=== PATIENT | female | born 1960 | race Caucasian/White ===

== ENCOUNTER 2016-11-28 04:41 | Emergency (ER) | payer OTHER ==
[~2016-11-28] VITALS: Ht 167.6 cm; Wt 95.5 kg
[~2016-11-28 04:41] MED LIST: ADIPEX-P37.5 MG PO; ADVIL200 MG PO; ALLEGRA ALLERGY60 MG PO; AMBIEN CR6.25 MG PO; BEN TP; CALCIUM CARBONATE; CALCIUM600 M1 PO; CHERATUSSIN AC120 ML PO; CLINDAMYCIN TP; CYMBALTA 30MG30 MG PO; DARVOCET N 101 UDTAB PO; ESCITALOPRAM PO; FISH OIL 1000MG1 CAP PO; FLEXERIL PO; GAVISCON 95 MG360 ML PO; LEVAQUIN 5500 MG/TA1 PO; MULTIPLE VITAMI1 CAP PO; MURO N OP; NATURE'S BLEND400 IU PO; NEURONTIN100 MG PO; NEXIUM 40MG40 MG PO; NEXIUM PO; NORCO 325 MG-51 TAB PO; PHENTERMINE HCL15 MG PO; PREDNISONE20 MG PO; REFRESH 1 ML1 ML OP; REQUIP XL2 MG PO; REQUIP XL4 MG PO; ROPINAROLE PO; SYNTHROID0.025 MG PO; TUMS500 MG PO; ULTRAM 50MG TAB50 MG PO; VITAMIN; VITAMIN D 1001000 IU PO; VITAMIN D PO; VITAMIN E PO
[2016-11-28 04:44] VITALS: TEMP 98.1
[2016-11-28] MEDS ORDERED: TESSALON PERLE200 MG PO (04:49)
[2016-11-28] MEDS ORDERED: PROAIR HFA0.09 MG/AC IH (04:49)
[2016-11-28] MEDS ORDERED: CARAFATE 1GM1 G PO (04:50)
[2016-11-28] MEDS ORDERED: PHENERGAN W/CO120 M1 PO (04:50)
[2016-11-28 05:23] LABS: BASO # 0.1 (0.0-0.2); BASO % 0.6 % (0.0-2.0); EOS # 0.3 (0.0-0.7); EOS % 3.5 % (0-4.0); GRAN # 5.4 (1.4-6.5); GRAN % 60.3 % (42.2-75.2); HEMATOCRIT 39.2 % (37.0-47.0); HEMOGLOBIN 13.4 g/dl (12.5-16.0); LYMPH # 2.4 (1.2-3.4); LYMPH % 27.4 % (20.0-51.0); MEAN CELL VOLUME 89 fl (80.0-100.0); MEAN CORPUSCULAR HEMOGLOBIN 31 pg (27.0-31.0); MEAN CORPUSCULAR HGB CONC 34 g/dl (33.0-37.0); MEAN PLATELET VOLUME 9.7 fl (7.4-10.4); MONO # 0.7 (0.1-0.6); MONO % 7.9 % (1.7-9.3); PLATELET COUNT 236 K/mm3 (130-400); REDCELL DISTRIBUTION WIDTH-CV 12.5 % (11.5-14.5); WHITE BLOOD COUNT 8.9 K/mm3 (4.8-10.8)
[2016-11-28 05:43] LABS: ANION GAP 10 mmol/L (7-16); BLOOD UREA NITROGEN 23 mg/dL (7-17); CALCIUM 9.4 mg/dL (8.4-10.2); CARBON DIOXIDE 24 mmol/L (22-30); CHLORIDE 106 mmol/L (98-107); GLUCOSE 109 mg/dL (74-106); POTASSIUM 3.8 mmol/L (3.4-5.0); SODIUM 141 mmol/L (137-145)
[2016-11-28 05:44] LABS: C-REACTIVE PROTEIN < 0.5 mg/dL (0.0-0.9)
[2016-11-28 05:49] LABS: B-TYPE NATRIURETIC PEPTIDE 112 pg/mL (0-125)
[2016-11-28] MEDS ORDERED: TUSS PO (06:51)
[2016-11-28 07:22] VITALS: BP 141/91; PULSE 95
== END 2016-11-28 07:23 | disposition home or self-care (01) ==
LOC: COL.ER 04:41
PROVIDERS: Emergency Medicine
DX: J40 Bronchitis, not specified as acute or chronic (principal)
CPT/HCPCS: Q9967

== ENCOUNTER → 2016-12-13 | Outpatient (CLI) | payer OTHER ==
[~2016-12-13] MED LIST changes: +ATIVAN 0.50.5 MG/TAB PO; +CARAFATE 1GM1 G PO; +CEPACOL SORE TH1 LO8 MM; +NEXIUM 20MG20 MG PO; +PHENERGAN W/CO120 M1 PO; +PROAIR HFA0.09 MG/AC IH; +TESSALON PERLE200 MG PO; +TUSS PO
== END ==
LOC: MC.RAD 12:40
DX: N63 Unspecified lump in breast (principal)

== ENCOUNTER 2016-12-27 11:34 | Day surgery (SDC) | payer OTHER ==
[~2016-12-27] VITALS: Ht 165.1 cm; Wt 93.7 kg
[~2016-12-27 11:34] MED LIST changes: -ATIVAN 0.50.5 MG/TAB PO; -CEPACOL SORE TH1 LO8 MM; -NEXIUM 20MG20 MG PO
[2016-12-27] MEDS ORDERED: NEXIUM 20MG20 MG PO (12:08)
[2016-12-27 12:26] VITALS: BP 125/83; PULSE 93; TEMP 97.9
[2016-12-27 13:34] VITALS: BP 108/86; PULSE 97; TEMP 97.2
[2016-12-27 13:50] VITALS: BP 107/73; PULSE 95
[2016-12-27 14:05] VITALS: BP 105/67; PULSE 94
[2016-12-27 14:20] VITALS: BP 105/68; PULSE 98
== END 2016-12-27 15:10 | disposition home or self-care (01) ==
LOC: SDCO 11:34
DX: R05 Cough (principal); K21.9 Gastro-esophageal reflux disease without esophagitis; Z80.9 Family history of malignant neoplasm, unspecified
CPT/HCPCS: J0456; J2704; J2920; J7050; J7120

== ENCOUNTER → 2017-02-11 | Outpatient (CLI) | payer OTHER ==
[~2017-02-11] MED LIST changes: +ATIVAN 0.50.5 MG/TAB PO; +CEPACOL SORE TH1 LO8 MM; +NEXIUM 20MG20 MG PO
== END ==
LOC: COL.RAD 10:14
DX: K21.9 Gastro-esophageal reflux disease without esophagitis (principal); K44.9 Diaphragmatic hernia without obstruction or gangrene

== ENCOUNTER 2017-03-30 09:11 | Day surgery (SDC) | payer OTHER ==
[2017-03-30] VITALS (8 sets, daily range): BP systolic 109–132; BP diastolic 68–82; PULSE 86–99; TEMP 98
[~2017-03-30] VITALS: Ht 165.1 cm; Wt 95.3 kg
[~2017-03-30 09:11] MED LIST changes: -ATIVAN 0.50.5 MG/TAB PO; -CEPACOL SORE TH1 LO8 MM
[2017-03-30] MEDS ORDERED: ATIVAN 0.50.5 MG/TAB PO (10:45)
[2017-03-30] MEDS ORDERED: CEPACOL SORE TH1 LO8 MM (10:45)
[2017-03-30 15:03] LABS: BASO # 0.1 (0.0-0.2); BASO % 0.6 % (0.0-2.0); EOS # 0.2 (0.0-0.7); EOS % 1.7 % (0-4.0); GRAN % 84.5 % (42.2-75.2); HEMATOCRIT 42.4 % (37.0-47.0); HEMOGLOBIN 14.5 g/dl (12.5-16.0); LYMPH # 1.1 (1.2-3.4); LYMPH % 10.2 % (20.0-51.0); MEAN CELL VOLUME 90 fl (80.0-100.0); MEAN CORPUSCULAR HEMOGLOBIN 31 pg (27.0-31.0); MEAN CORPUSCULAR HGB CONC 34 g/dl (33.0-37.0); MEAN PLATELET VOLUME 9.5 fl (7.4-10.4); MONO # 0.3 (0.1-0.6); MONO % 2.4 % (1.7-9.3); PLATELET COUNT 265 K/mm3 (130-400); RED BLOOD COUNT 4.71 M/mm3 (4.10-5.30); WHITE BLOOD COUNT 10.6 K/mm3 (4.8-10.8)
[2017-03-30 15:12] LABS: ADJUSTED CALCIUM 9.3 mg/dL (8.4-10.2); ALBUMIN 4.3 gm/dL (3.5-5.0); BILIRUBIN,TOTAL 0.7 mg/dL (0.0-1.0); CALCIUM 9.5 mg/dL (8.4-10.2); CREATININE, serum 0.79 mg/dL (0.52-1.25); POTASSIUM 4.4 mmol/L (3.4-5.0); TOTAL PROTEIN 7.4 gm/dL (6.4-8.2)
[2017-03-31 02:30] VITALS: BP 116/57; PULSE 87; TEMP 97.6
[2017-03-31 06:09] VITALS: BP 112/64; PULSE 78; TEMP 98.8
[2017-03-31 08:06] VITALS: BP 97/52; PULSE 84; TEMP 97.4
[2017-03-31 12:17] VITALS: BP 113/56; PULSE 79; TEMP 97.5
== END 2017-03-31 12:49 | disposition home or self-care (01) ==
LOC: SDCO 09:11 → JCC 15:34 → SDCO 03-31 12:49
PROVIDERS: Surgery
PROC: 0DV44ZZ Restriction of Esophagogastric Junction, Percutaneous Endoscopic Approach (ICD-10-PCS; principal; 2017-03-30 11:00)
DX: K21.9 Gastro-esophageal reflux disease without esophagitis (principal); R05 Cough; K22.4 Dyskinesia of esophagus; K44.9 Diaphragmatic hernia without obstruction or gangrene; Z98.84 Bariatric surgery status; I10 Essential (primary) hypertension; E03.9 Hypothyroidism, unspecified; F32.9 Major depressive disorder, single episode, unspecified; Z79.899 Other long term (current) drug therapy
CPT/HCPCS: OP; A9284; C1713; C1781; J0330; J1100; J1170; J1885; J2405; J2704; J2710; J3010; J7042; J7120

== ENCOUNTER → 2017-04-22 | Outpatient (REF) ==
[~2017-04-22] MED LIST changes: +ATIVAN 0.50.5 MG/TAB PO; +CEPACOL SORE TH1 LO8 MM
== END ==
LOC: WSOH 15:22
DX: Z02.89 Encounter for other administrative examinations (principal)
CPT/HCPCS: G0463

== ENCOUNTER 2017-04-29 11:37 | Emergency (ER) | payer OTHER ==
[~2017-04-29] VITALS: Ht 165.1 cm; Wt 95.5 kg
[2017-04-29 11:39] VITALS: TEMP 99.3
[2017-04-29 13:19] VITALS: BP 112/73; PULSE 88
== END 2017-04-29 13:20 | disposition home or self-care (01) ==
LOC: COL.ER 11:37
DX: R51 Headache (principal); I67.1 Cerebral aneurysm, nonruptured; F41.9 Anxiety disorder, unspecified

== ENCOUNTER → 2017-05-17 | Outpatient (CLI) | payer OTHER | LOC: COL.RAD 05-12 14:00 | DX: I67.1 Cerebral aneurysm, nonruptured (principal) ==

== ENCOUNTER → 2017-07-21 | Outpatient (REF) | LOC: WSOH 19:00 | DX: Z02.89 Encounter for other administrative examinations (principal) ==

== ENCOUNTER → 2018-01-11 | Outpatient (CLI) | payer OTHER | LOC: MC.RAD 09:32 | DX: Z12.31 Encounter for screening mammogram for malignant neoplasm of breast (principal); Z98.890 Other specified postprocedural states ==

== ENCOUNTER 2018-12-29 11:19 | Emergency (ER) | payer OTHER ==
[~2018-12-29] VITALS: Ht 165.1 cm; Wt 99.1 kg
[2018-12-29 11:21] VITALS: TEMP 99.9
[2018-12-29] MEDS ORDERED: LEXAPRO20 MG PO (11:33)
[2018-12-29] MEDS ORDERED: NEXIUM 40MG40 MG PO (11:33)
[2018-12-29] MEDS ORDERED: SYNTHROID0.05 MG/TA PO (11:33)
[2018-12-29] MEDS ORDERED: EPA FISH OIL1 SGL PO (11:34)
[2018-12-29] MEDS ORDERED: NORCO 325 MG-7.1 TAB PO (13:08)
[2018-12-29 13:14] VITALS: BP 144/88; PULSE 84
== END 2018-12-29 13:20 | disposition home or self-care (01) ==
LOC: COL.ER 11:19
DX: L02.01 Cutaneous abscess of face (principal); E03.9 Hypothyroidism, unspecified; Z98.890 Other specified postprocedural states; Z90.89 Acquired absence of other organs; Z88.5 Allergy status to narcotic agent; Z87.891 Personal history of nicotine dependence
CPT/HCPCS: J1170

== ENCOUNTER 2018-12-31 02:56 | Emergency (ER) | payer OTHER ==
[~2018-12-31] VITALS: Ht 165.1 cm; Wt 99.1 kg
[~2018-12-31 02:56] MED LIST changes: +EPA FISH OIL1 SGL PO; +LEXAPRO20 MG PO; +NORCO 325 MG-7.1 TAB PO; +SYNTHROID0.05 MG/TA PO
[2018-12-31 02:57] VITALS: TEMP 98.7
[2018-12-31 03:53] LABS: BASO # 0.1 (0.0-0.2); BASO % 0.9 % (0.0-2.0); EOS # 0.2 (0.0-0.7); EOS % 3.4 % (0-4.0); GRAN # 3.1 (1.4-6.5); GRAN % 53.3 % (42.2-75.2); HEMATOCRIT 41.6 % (37.0-47.0); HEMOGLOBIN 14.3 g/dl (12.5-16.0); LYMPH # 1.6 (1.2-3.4); LYMPH % 27.5 % (20.0-51.0); MEAN CELL VOLUME 90 fl (80.0-100.0); MEAN CORPUSCULAR HEMOGLOBIN 31 pg (27.0-31.0); MEAN CORPUSCULAR HGB CONC 34 g/dl (33.0-37.0); MEAN PLATELET VOLUME 9.3 fl (7.4-10.4); MONO # 0.8 (0.1-0.6); MONO % 14.4 % (1.7-9.3); PLATELET COUNT 236 K/mm3 (130-400); RED BLOOD COUNT 4.61 M/mm3 (4.10-5.30); REDCELL DISTRIBUTION WIDTH-CV 11.9 % (11.5-14.5)
[2018-12-31 04:07] LABS: ALBUMIN 4.1 gm/dL (3.5-5.0); BILIRUBIN,TOTAL 0.4 mg/dL (0.0-1.0); C-REACTIVE PROTEIN 1.4 mg/dL (0.0-0.9); CALCIUM 9.3 mg/dL (8.4-10.2); CREATININE, serum 0.78 mg/dL (0.52-1.25); POTASSIUM 4.4 mmol/L (3.4-5.0); TOTAL PROTEIN 7.1 gm/dL (6.4-8.2)
[2018-12-31] MEDS ORDERED: DOXYCYCLINE 10100 MG PO (06:19)
[2018-12-31] MEDS ORDERED: NORCO 325 MG-51 TAB PO (06:20)
[2018-12-31 06:43] VITALS: BP 119/78; PULSE 85
== END 2018-12-31 06:45 | disposition home or self-care (01) ==
LOC: COL.ER 02:56
PROVIDERS: Emergency Medicine
DX: L03.211 Cellulitis of face (principal); L02.01 Cutaneous abscess of face
CPT/HCPCS: J1170; J3010; J7030; J7050; Q9967

== ENCOUNTER → 2019-01-16 | Outpatient (CLI) | payer OTHER ==
[~2019-01-16] MED LIST changes: +DOXYCYCLINE 10100 MG PO
== END ==
LOC: MC.RAD 14:18
DX: Z12.31 Encounter for screening mammogram for malignant neoplasm of breast (principal); N63.11 Unspecified lump in the right breast, upper outer quadrant; Z98.890 Other specified postprocedural states; Z98.82 Breast implant status; Z92.3 Personal history of irradiation

== ENCOUNTER → 2019-01-30 | Outpatient (CLI) | payer OTHER ==
[~2019-01-30] VITALS: Ht 165.1 cm; Wt 99.1 kg
[2019-01-30 14:56] VITALS: BP 130/80; PULSE 72
== END ==
LOC: LIGHT 01-02 14:29
DX: Z98.84 Bariatric surgery status (principal); E66.9 Obesity, unspecified; Z68.36 Body mass index [BMI] 36.0-36.9, adult; Z71.3 Dietary counseling and surveillance
CPT/HCPCS: G0463

== ENCOUNTER 2020-03-29 08:14 | Emergency (ER) | payer OTHER ==
[~2020-03-29] VITALS: Ht 165.1 cm; Wt 104.5 kg
[2020-03-29 08:20] VITALS: BP 126/68; TEMP 97.6
[2020-03-29 09:39] LABS: BASO % 0.5 % (0.0-2.0); EOS # 0.3 (0.0-0.7); EOS % 4.1 % (0-4.0); GRAN # 3.4 (1.4-6.5); GRAN % 54.4 % (42.2-75.2); HEMATOCRIT 40.3 % (37.0-47.0); LYMPH # 1.9 (1.2-3.4); LYMPH % 29.6 % (20.0-51.0); MEAN CELL VOLUME 90 fl (80.0-100.0); MEAN CORPUSCULAR HEMOGLOBIN 31 pg (27.0-31.0); MEAN CORPUSCULAR HGB CONC 35 g/dl (33.0-37.0); MEAN PLATELET VOLUME 9.7 fl (7.4-10.4); MONO # 0.7 (0.1-0.6); MONO % 11.1 % (1.7-9.3); PLATELET COUNT 213 K/mm3 (130-400); RED BLOOD COUNT 4.46 M/mm3 (4.10-5.30)
[2020-03-29 09:55] LABS: ALANINE AMINOTRANSFERASE 41 U/L (4-34); ALBUMIN 4.4 gm/dL (3.5-5.0); ALKALINE PHOSPHATASE 67 U/L (50-136); ANION GAP 9 mmol/L (7-16); AST,SGOT 33 U/L (15-37); BILIRUBIN,TOTAL 0.6 mg/dL (0.0-1.0); BLOOD UREA NITROGEN 22 mg/dL (7-17); CALCIUM 9.4 mg/dL (8.4-10.2); CARBON DIOXIDE 25 mmol/L (22-30); CHLORIDE 104 mmol/L (98-107); GLUCOSE 106 mg/dL (74-106); LIPASE 139 U/L (23-300); POTASSIUM 4.1 mmol/L (3.4-5.0); SODIUM 137 mmol/L (137-145); TOTAL PROTEIN 7.4 gm/dL (6.4-8.2)
[2020-03-29 10:00] LABS: C-REACTIVE PROTEIN < 0.5 mg/dL (0.0-0.9)
[2020-03-29 10:31] LABS: COLLECTION METHOD CLEAN CATCH
[2020-03-29 10:45] LABS: MUCOUS Present /lpf; PH 5 (5-8); SQUAMOUS EPITHELIAL 0-2 /hpf; URINE APPEARANCE Clear; URINE BACTERIA None Seen /hpf; URINE BILIRUBIN Negative (NEGATIVE); URINE BLOOD Negative (NEGATIVE); URINE COLOR Yellow; URINE GLUCOSE Negative (NEGATIVE); URINE KETONE Negative (NEGATIVE); URINE LEUKOCYTE ESTERASE Negative (NEGATIVE); URINE NITRATE Negative (NEGATIVE); URINE PROTEIN(semi-quant) Negative (NEGATIVE); URINE RBC 0-2 /hpf; URINE UROBILINOGEN Negative (NEGATIVE)
[2020-03-29] MEDS ORDERED: ZOFRAN ODT4 MG PO (11:59)
[2020-03-29] MEDS ORDERED: NORCO 325 MG-51 TAB PO (11:59)
[2020-03-29 12:20] VITALS: PULSE 82
== END 2020-03-29 12:20 | disposition home or self-care (01) ==
LOC: COL.ER 08:14
PROVIDERS: Physician Assistant
DX: K43.9 Ventral hernia without obstruction or gangrene (principal); I10 Essential (primary) hypertension; K21.9 Gastro-esophageal reflux disease without esophagitis; E03.9 Hypothyroidism, unspecified; F32.9 Major depressive disorder, single episode, unspecified; Z90.89 Acquired absence of other organs; Z88.5 Allergy status to narcotic agent; Z90.710 Acquired absence of both cervix and uterus; Z85.3 Personal history of malignant neoplasm of breast
CPT/HCPCS: J1170; J1885; J2405; J7030; Q9967

== ENCOUNTER 2020-04-11 05:25 | Day surgery (SDC) | payer OTHER ==
[~2020-04-11] VITALS: Ht 166.4 cm; Wt 101.3 kg
[2020-04-11] VITALS (9 sets, daily range): BP systolic 116–131; BP diastolic 69–93; PULSE 81–100; TEMP 97.9–98.9
[~2020-04-11 05:25] MED LIST changes: +ZOFRAN ODT4 MG PO
[2020-04-11] MEDS ORDERED: MASON NATURAL1200 MG PO (06:27)
[2020-04-11] MEDS ORDERED: DEPAKOTE ER 50500 MG PO (06:30)
[2020-04-11] MEDS ORDERED: NORCO 325 MG-51 TAB PO ×2 (06:31→09:52)
[2020-04-11] MEDS ORDERED: ZOFRAN ODT4 MG PO (06:32)
[2020-04-11] MEDS ORDERED: ATIVAN 0.50.5 MG/TAB PO (06:32)
[2020-04-11] MEDS ORDERED: TUMS500 MG PO (06:33)
--- NOTE | 2020-04-11 06:33 | NUR ---
TO RM 8 AT 0546- CALL LIGHT IN REACH WILL CALL FOR RIDE HOME
--- NOTE | 2020-04-11 13:20 | NUR ---
Pt arrived to room 328 at this time. She is very drowsy but will arouse to name and answer questions appropriately, quickly falls back asleep. Pt currently requiring 3L O2 via NC. Occasional cough present, some tracheal wheeze present but lungs CTA. HR regular. No swelling present to extremities. Binder on to abdomen, small amount of blood present. OR nurse reports area has not grown. Pt reporting pain 8/10, PRN norco administered. Pt requesting Zofran for nausea that is typically associated with [place]. Pt resting comfortably at this time. Call light within reach. WIll continue to monitor.
--- NOTE | 2020-04-11 17:00 | NUR ---
Pt awake and alert, ambulating in the room. No longer requiring O2. WIll proceed with discharge.
--- NOTE | 2020-04-11 17:19 | NUR ---
Discharge instructions and paperwork reviewed with patient. All questions answered at this time. IV to LAC dc'd cathteter tip intact. Pt wheeled out at this time.
== END 2020-04-11 17:20 | disposition home or self-care (01) ==
LOC: SDCO 05:25 → JCC 14:05 → SDCO 17:20
DX: K43.2 Incisional hernia without obstruction or gangrene (principal); K21.9 Gastro-esophageal reflux disease without esophagitis; G25.81 Restless legs syndrome; E03.9 Hypothyroidism, unspecified; F32.9 Major depressive disorder, single episode, unspecified; Z85.3 Personal history of malignant neoplasm of breast; I67.1 Cerebral aneurysm, nonruptured; Z82.3 Family history of stroke; Z83.3 Family history of diabetes mellitus; Z84.1 Family history of disorders of kidney and ureter; Z82.49 Family history of ischemic heart disease and other diseases of the circulatory system
CPT/HCPCS: OP; C1781; J0330; J1100; J1170; J1885; J2405; J2704; J2710; J3010; J7120

== ENCOUNTER → 2020-11-06 | Outpatient (REF) ==
[~2020-11-06] MED LIST changes: +DEPAKOTE ER 50500 MG PO; +MASON NATURAL1200 MG PO
== END ==
LOC: COL.LAB 20:36
DX: Z20.828 Contact with and (suspected) exposure to other viral communicable diseases (principal)

== ENCOUNTER → 2022-01-08 | Outpatient (CLI) | payer OTHER | LOC: MC.RAD 11:32 | DX: Z12.31 Encounter for screening mammogram for malignant neoplasm of breast (principal) ==

== ENCOUNTER 2022-01-11 03:16 | Emergency (ER) | payer OTHER ==
[~2022-01-11] VITALS: Ht 167.6 cm; Wt 100.0 kg
[2022-01-11 03:21] VITALS: TEMP 98.1
[2022-01-11] MEDS ORDERED: NORCO 325 MG-51 TAB PO (03:41)
[2022-01-11 03:56] VITALS: PULSE 77
== END 2022-01-11 03:56 | disposition home or self-care (01) ==
LOC: COL.ER 03:16
DX: M79.672 Pain in left foot (principal); Z88.5 Allergy status to narcotic agent

== ENCOUNTER → 2022-02-16 | Outpatient (CLI) | payer OTHER | LOC: COL.RAD 11:50 | DX: M25.572 Pain in left ankle and joints of left foot (principal); R60.9 Edema, unspecified ==

== ENCOUNTER → 2022-03-16 | Outpatient (CLI) | payer OTHER ==
[~2022-03-16] MED LIST changes: +PERCOCET 325 MG1 TA2 PO
== END | disposition still patient (30) ==
LOC: COL.RAD 12:32
DX: M79.672 Pain in left foot (principal)
CPT/HCPCS: A9585; Q9967

== ENCOUNTER 2022-03-21 20:45 | Emergency (ER) | payer OTHER ==
[~2022-03-21] VITALS: Ht 167.6 cm; Wt 96.8 kg
[~2022-03-21 20:45] MED LIST changes: -PERCOCET 325 MG1 TA2 PO
[2022-03-21 20:49] VITALS: TEMP 97.8
[2022-03-21] MEDS ORDERED: PERCOCET 325 MG1 TA2 PO (21:12)
[2022-03-21 21:55] VITALS: BP 124/75; PULSE 91
== END 2022-03-21 22:07 | disposition home or self-care (01) ==
LOC: COL.ER 20:45
DX: M84.375A Stress fracture, left foot, initial encounter for fracture (principal); Z88.5 Allergy status to narcotic agent; X58.XXXA Exposure to other specified factors, initial encounter
CPT/HCPCS: L4386

== ENCOUNTER → 2023-09-21 | Outpatient (CLI) | payer OTHER ==
[~2023-09-21] MED LIST changes: +PERCOCET 325 MG1 TA2 PO
== END ==
LOC: MHCPAIN 08:30
DX: M47.817 Spondylosis without myelopathy or radiculopathy, lumbosacral region (principal); M54.50 Low back pain, unspecified; G57.11 Meralgia paresthetica, right lower limb
CPT/HCPCS: G0463

== ENCOUNTER → 2023-09-21 | Outpatient (CLI) | payer OTHER | LOC: COL.RAD 10:03 | DX: M47.896 Other spondylosis, lumbar region (principal) ==

== ENCOUNTER → 2023-10-25 | Outpatient (CLI) | payer OTHER | LOC: MHCPAIN 14:39 | DX: M54.16 Radiculopathy, lumbar region (principal); M47.817 Spondylosis without myelopathy or radiculopathy, lumbosacral region; M48.061 Spinal stenosis, lumbar region without neurogenic claudication | CPT/HCPCS: G0463 ==

== ENCOUNTER → 2023-11-08 | Outpatient (CLI) | payer OTHER | LOC: MHCPAIN 13:51 | DX: M54.16 Radiculopathy, lumbar region (principal); M47.896 Other spondylosis, lumbar region; M48.061 Spinal stenosis, lumbar region without neurogenic claudication | CPT/HCPCS: G0463 ==